=== PATIENT | male | born 1950 | race Caucasian/White ===

== ENCOUNTER 2020-07-18 14:01 | Emergency (ER) | payer MEDICARE, BC ==
[~2020-07-18] VITALS: Ht 175.3 cm; Wt 82.5 kg
[2020-07-18] MEDS ORDERED: LIPITOR20 MG PO (14:12)
[2020-07-18] MEDS ORDERED: LEVOTHYROXINE0.5 GM MISC (14:13)
--- NOTE | 2020-07-18 15:48 | EKG ---
[facility] [address] [place], [place] [address] Signed Normal sinus rhythm Nonspecific T wave abnormality Abnormal ECG No previous ECGs available Confirmed by ELROY CEBALLOS DO ([id number]) on 07/18/2020 3:47:52 PM Electronically Signed By: ELROY CEABLLOS DO 07/18/20 1548 PATIENT NAME: BERENICE SHORE Electrocardiogram DATE OF : 48 PHYSICIAN: ELROY CEBALLOS DO REPORT #: [id number] REPORT IS CONFIDENTIAL AND NOT TO BE RELEASED WITHOUT AUTHORIZATION
== END 2020-07-18 16:19 | disposition home or self-care (01) ==
LOC: ED 14:01
DX: R06.02 Shortness of breath (principal); Z79.899 Other long term (current) drug therapy
CPT/HCPCS: 71045; 80053; 83735; 84484; 85025; 93005; 93010; 99285-25